=== PATIENT | female | born 1980 | race Caucasian/White ===

== ENCOUNTER 2022-02-16 18:19 | Emergency (ER) | payer MEDICAID ==
[~2022-02-16] VITALS: Ht 149.9 cm; Wt 40.2 kg
[2022-02-16 18:46] VITALS: BP 115/72
== END 2022-02-16 23:16 | disposition left against medical advice (07) ==
LOC: ER 18:19
DX: Z53.21 Procedure and treatment not carried out due to patient leaving prior to being seen by health care provider (principal)